=== PATIENT | female | born 1975 ===

== ENCOUNTER 2021-03-24 19:59 | Emergency (ER) | payer MEDICAID, SELFPAY ==
--- NOTE | ~2021-03-24 | XR_ITS ---
EXAMINATION: PORTABLE CHEST 1 VIEW CLINICAL INFORMATION: CHEST PAIN . COMPARISON: No recent pertinent prior studies are available for comparison. TECHNIQUE: Portable frontal view of the chest was obtained. FINDINGS: The lungs are well expanded. No focal infiltrate, effusion, edema, or pneumothorax. Cardiac and mediastinal silhouettes are within normal limits for technique. No acute bony abnormality seen. XR/XR chest 1V IMPRESSION: No evidence of acute disease.
[2021-03-24 20:07] VITALS: BP 167/90; PULSE 96; RESP 20; TEMP 36.2; O2SAT 100; BMI 28.5
--- NOTE | 2021-03-24 20:08 | PC.NURSE ---
ekg done at 2005
--- NOTE | 2021-03-24 20:11 | ECG_ITS ---
Test Reason : CP Blood Pressure : / mmHG Vent. Rate : 098 BPM Atrial Rate : 098 BPM P-R Int : 144 ms QRS Dur : 076 ms QT Int : 354 ms P-R-T Axes : 020 035 003 degrees QTc Int : 451 ms Normal sinus rhythm Normal ECG No previous ECGs available Referred By: Generic ED Physician Electronically Signed By:LADARIUS GOINS
[2021-03-24 21:06] VITALS: BP 154/95; PULSE 91; RESP 16; TEMP 37.4; O2SAT 100
[2021-03-24 21:19] LABS: MANUAL DIFF FLAG NO
[2021-03-24 21:27] LABS: Basophils Percent Auto 0.3 % (0-2); Eosinophils Absolute Auto 0.5 X10*3/uL (0.0-0.4); Eosinophils Percent Auto 5.2 % (0-4); Hematocrit 36.2 % (37-47); Hemoglobin 12.1 g/dl (12.0-16.0); Imm Gran Abs Auto 0.02 X10*3/uL (0.00-0.03); Imm Gran Pct Auto 0.2 % (0.0-0.4); Lymphocytes Absolute Auto 2.8 X10*3/uL (1.2-4.9); Lymphocytes Percent Auto 32.8 % (20-40); Mean Corpuscular HGB Conc 33.4 g/dl (31.0-35.0); Mean Corpuscular Hemoglobin 27.5 pg (27.0-33.0); Mean Corpuscular Volume 82.3 fL (80-98); Monocytes Absolute Auto 0.6 X10*3/uL (0.1-1.2); Monocytes Percent Auto 6.7 % (2-11); Neutrophils Absolute Auto 4.7 X10*3/uL (2.0-8.3); Neutrophils Percent Auto 54.8 % (45-73); Platelet Count 300 X10*3/uL (160-400); Red Cell Distribution Width 13.2 % (11.0-16.0); White Blood Count 8.6 X10*3/uL (4.8-10.8)
[2021-03-24 21:50] LABS: Anion Gap 15 (12-20); Blood Urea Nitrogen 9 mg/dL (9-16); Calcium 9.2 mg/dL (8.4-10.2); Carbon Dioxide 23 mmol/L (22-29); Chloride 104 mmol/L (96-108); Creatinine Clr Calc Pharmacy 107.6; Estimated Glomerular Filt Rate > 60; Glucose Random 196 mg/dL (60-115); Potassium 4.5 mmol/L (3.3-5.1); Sodium 137 mmol/L (135-145)
[2021-03-24 21:55] LABS: Troponin-I High Sensitivity < 3.5 ng/L (<3.5-17.0)
--- NOTE | 2021-03-24 22:53 | ED.CHESTPAIN ---
HPI - Chest Pain General Chief Complaint: Chest Pain Stated Complaint: chest pain Time Seen by Provider: 03/24/21 22:53 Source: patient History of Present Illness HPI narrative: This is a 45-year-old female with history of asthma who presents with complaints of 3 days of chest pain not associated with fever, chills, but states today she began having some nausea but does not think that she has acid reflux. The pain has not been associated with shortness of breath, recent travel, calf pain/swelling. Patient states that nothing makes the pain worse or better. Related Data Allergies Allergy/AdvReac Type Severity Reaction Status Date / Time No Known Allergies Allergy Verified 03/24/21 20:07 Review of Systems Review of Systems: Pertinent positives and negatives as stated in HPI 10 point review of systems is otherwise negative. PMFSH Past Medical History Source: nursing notes reviewed Medical History Asthma Diabetes Social History Social History Advance Directives: No Patient : No Physical Exam Vital Signs: Vital Signs: Last Vital Signs Temp 98.4 F 03/24/21 22:54 Pulse 83 03/24/21 22:54 Resp 18 03/24/21 22:54 BP 166/71 H 03/24/21 22:54 Pulse Ox 99 03/24/21 22:54 Body Mass Index 28.5 VITAL SIGNS: Reviewed. GENERAL: Well developed, well nourished, in no acute distress. HEAD: Normocephalic/atraumatic EYES: PERRLA, EOMI EARS: Ext canals without abnormality NOSE: Nares patent bilateral OROPHARYNX: no oral lesions noted, posterior pharynx clear NECK: Supple, no adenopathy LUNGS: Normal breath sounds. No adventitious sounds or accessory muscle use. SpO2<99> CARDIOVASCULAR: Regular rate and rhythm without noted murmurs, no JVD or lower extremity edema. ABDOMEN: Soft, non-tender, non-distended with bowel sounds. Course Course Course Narrative: This is a 45-year-old female with history and clinical presentation most consistent with asthma/costochondritis but no evidence to support acute asthma exacerbatio and low clinical suspicion for cardiopulmonary etiology. No evidence to support PE. Review of all investigations negative for acute findings, these results were communicated with the patient on she was discharged in stable condition with presumptive costochondritis as well as increase in asthma symptoms. MDM - Chest Pain Lab Data Result diagrams: 03/24/21 21:15 03/24/21 21:15 Labs: Lab Results 03/24/21 03/24/21 03/24/21 Range/Units 21:15 21:15 21:15 WBC 8.6 (4.8-10.8) X10*3/uL RBC 4.40 (4.20-5.50) X10*6/uL Hgb 12.1 (12.0-16.0) g/dl Hct 36.2 L (37-47) % MCV 82.3 (80-98) fL MCH 27.5 (27.0-33.0) pg MCHC 33.4 (31.0-35.0) g/dl RDW 13.2 (11.0-16.0) % Plt Count 300 (160-400) X10*3/uL MPV 10.0 (9.4-12.3) fL Immature Gran % (Auto) 0.2 (0.0-0.4) % Neut % (Auto) 54.8 (45-73) % Lymph % (Auto) 32.8 (20-40) % [place] % (Auto) 6.7 (2-11) % Eos % (Auto) 5.2 H (0-4) % Baso % (Auto) 0.3 (0-2) % Lymph # (Auto) 2.8 (1.2-4.9) X10*3/uL [place] # (Auto) 0.6 (0.1-1.2) X10*3/uL Eos # (Auto) 0.5 H (0.0-0.4) X10*3/uL Baso # (Auto) 0.0 (0.0-0.2) X10*3/uL Abs Immat Gran (auto) 0.02 (0.00-0.03) X10*3/uL Absolute Neuts (auto) 4.7 (2.0-8.3) X10*3/uL Absolute Nucleated RBC 0.000 (0.0-0.012) X10*3/uL Nucleated RBC % (auto) 0.0 (0.0-0.2) /100WBC Hold Blue Top Sodium 137 (135-145) mmol/L Potassium 4.5 (3.3-5.1) mmol/L Chloride 104 (96-108) mmol/L Carbon Dioxide 23 (22-29) mmol/L Anion Gap 15 (12-20) BUN 9 (9-16) mg/dL Creatinine 0.72 (0.5-1.4) mg/dL Estim Creat Clear Calc 107.6 Estimated GFR > 60 Random Glucose 196 H (60-115) mg/dL Calcium 9.2 (8.4-10.2) mg/dL Troponin I High Sens < 3.5 (<3.5-17.0) ng/L 03/24/21 Range/Units 21:27 WBC (4.8-10.8) X10*3/uL RBC (4.20-5.50) X10*6/uL Hgb (12.0-16.0) g/dl Hct (37-47) % MCV (80-98) fL MCH (27.0-33.0) pg MCHC (31.0-35.0) g/dl RDW (11.0-16.0) % Plt Count (160-400) X10*3/uL MPV (9.4-12.3) fL Immature Gran % (Auto) (0.0-0.4) % Neut % (Auto) (45-73) % Lymph % (Auto) (20-40) % [place] % (Auto) (2-11) % Eos % (Auto) (0-4) % Baso % (Auto) (0-2) % Lymph # (Auto) (1.2-4.9) X10*3/uL [place] # (Auto) (0.1-1.2) X10*3/uL Eos # (Auto) (0.0-0.4) X10*3/uL Baso # (Auto) (0.0-0.2) X10*3/uL Abs Immat Gran (auto) (0.00-0.03) X10*3/uL Absolute Neuts (auto) (2.0-8.3) X10*3/uL Absolute Nucleated RBC (0.0-0.012) X10*3/uL Nucleated RBC % (auto) (0.0-0.2) /100WBC Hold Blue Top SEE NOTE Sodium (135-145) mmol/L Potassium (3.3-5.1) mmol/L Chloride (96-108) mmol/L Carbon Dioxide (22-29) mmol/L Anion Gap (12-20) BUN (9-16) mg/dL Creatinine (0.5-1.4) mg/dL Estim Creat Clear Calc Estimated GFR Random Glucose (60-115) mg/dL Calcium (8.4-10.2) mg/dL Troponin I High Sens (<3.5-17.0) ng/L ECG Data ECG #1: Attestation: I personally reviewed and interpreted this ECG as follows: Prior ECG tracings: not available for review Interpretation: Normal sinus rhythm, HR-98, no evidence of acute ischemia, WV/QRS/QTC are within normal limits. Discharge Plan Discharge Clinical Impression: Atypical chest pain, Acute costochondritis Patient Disposition: Home, Self-Care Instructions: Costochondritis (ED), Chest Wall Pain (ED) Additional Instructions: 1. Tylenol 1000 mg, orally, every 6 hours as needed for pain control. Do not exceed 4000 mg within 24 hours. 2. Ibuprofen 400 mg, orally with milk or food, every 6 hours as needed for pain control. You may take this medication with the Tylenol for improved symptom relief. 3. Recommend increasing frequency of albuterol inhaler over the next 24-48 hours for additional symptom relief. 4. Recommend combining Claritin as well as Flonase for additional allergy control. 5. Please follow-up with the primary care provider in next 2-3 days for re-evaluation. Return to the ER for any acute worsening of symptoms. Referrals: Isak Alberto MD [Primary Care Provider] - 2 days (Re-evaluation for complaints of chest discomfort, cardiopulmonary workup here in the ER has been otherwise benign.) Interventions: ED Discharge Assessment Last Done: 03/25/21 00:04 Discharge Date/Time: 03/25/21 00:05
[2021-03-24 22:54] VITALS: BP 166/71; PULSE 83; RESP 18; TEMP 36.9; O2SAT 99
== END 2021-03-25 00:05 | disposition home or self-care (01) ==
PROVIDERS: Emergency Provider Student in an Organized Health Care Education/Training Program; PCP Internal Medicine
DX: R07.89 Other chest pain (principal); M94.0 Chondrocostal junction syndrome [Tietze]; J45.909 Unspecified asthma, uncomplicated; E11.9 Type 2 diabetes mellitus without complications
CPT/HCPCS: 36415; 71045; 80048; 84484; 85025; 93005; 99284

== ENCOUNTER 2023-04-07 01:06 | Emergency (ER) | payer OTHER, SELFPAY ==
--- NOTE | ~2023-04-07 | CT_ITS ---
EXAMINATION: CT FACIAL BONES WITH CONTRAST CLINICAL INFORMATION: Rule out abscess right mandible COMPARISON: None available. TECHNIQUE: 85 mL Omnipaque 350 intravenous contrast was utilized. Multidetector helical imaging was performed through the facial bones. Coronal and sagittal reformatted images were created. This CT examination was performed using dose optimization techniques as appropriate, variously including the following: *Automated exposure control *Adjustment of mA and/or kV according to patient size (this includes techniques or standardized protocols for targeted exams where dose is matched to indication/reason for exam; i.e. extremities or head) *Use of iterative reconstruction technique DLP: 329 mGy-cm FINDINGS: There is subcutaneous edema adjacent to the right aspect of the mandibular body. No discrete fluid collection is seen in this region, though there is a tiny focus of gas adjacent to the right mandibular second premolar. Mild periapical lucency at the first right mandibular molar. Mildly prominent right submandibular and upper cervical lymph nodes may be reactive. No acute maxillofacial fractures are seen. Slight mucosal thickening of the right sphenoid sinus. Small mucous retention cysts in the maxillary sinuses. Remaining paranasal sinuses are well aerated. There is mucosal thickening of the infundibula, right greater than left. Leftward spurring of the nasal septum. Mild periapical lucency adjacent to the first right mandibular molar. The mandibular condyles are well-seated in the condylar fossa. The orbits demonstrate a normal appearance bilaterally. The globes are intact, and there are no suspicious findings to suggest retrobulbar hemorrhage. Visualized portions of the brain parenchyma are unremarkable. CT/CT facial bones w IV con IMPRESSION: Subcutaneous edema adjacent to the right aspect of the mandibular body. No discrete fluid collection is seen in this region, though there is a tiny focus of gas adjacent to the right mandibular second premolar which could be indicative of tiny abscess. Mild periapical lucency at the first right mandibular molar. Mildly prominent right submandibular and upper cervical lymph nodes may be reactive.
[2023-04-07 01:09] VITALS: BP 129/86; PULSE 94; RESP 16; TEMP 35.9; O2SAT 99; BMI 27.6
--- NOTE | 2023-04-07 01:36 | ED.DENTAL ---
HPI - Dental/Oral General Chief complaint: Dental/Oral Stated complaint: Facial swelling/pain Time Seen by Provider: 04/07/23 01:26 Source: patient Mode of arrival: ambulatory Limitations: no limitations History of Present Illness HPI Narrative: Patient comes to the emergency room complaining of right mandibular pain. Patient states that she went to see her dentist, per patient x-rays were done, she was told by her dentist that she has a significant dental infection/abscess. Patient was started on clindamycin and Tylenol 3 for pain control. Patient states that she has been taking the antibiotics for 3 days, however the swelling and the pain keeps getting worse. Patient denies fever chills. Related Data Previous Rx's Medication Instructions Recorded cefuroxime axetil 500 mg tablet 500 mg PO BID #20 tabs 04/07/23 ketorolac 10 mg tablet 10 mg PO TID PRN pain 5 days #12 04/07/23 tabs metronidazole 500 mg tablet 500 mg PO TID 10 days #30 tabs 04/07/23 Allergies Allergy/AdvReac Type Severity Reaction Status Date / Time No Known Allergies Allergy Verified 04/07/23 01:13 Review of Systems Review of Systems: Constitutional : No Weight loss, No Fever, No Chills, No Night Sweats, No Fatigue, No Malaise ENT/Mouth : No Hearing loss, No Ear Pain, No Nasal Congestion, No Sinus Pain, No Hoarseness, No sore throat, No Rhinorrhea, No Swallowing Difficulty, complaining of intl pain and right mandibular swelling Eyes: No Eye Pain, No Swelling, No Redness, No Foreign Body, No Discharge, No Vision Changes Cardiovascular : No Chest Pain, No SOB, No Dyspnea on Exertion, No Orthopnea, No Edema, No Palpitations Respiratory : No Cough, No Sputum, No Wheezing, No Smoke Exposure, No Dyspnea Gastrointestinal : No Nausea, No Vomiting, No Diarrhea, No Constipation, No abdominal Pain, No Hematochezia, No Melena Genitourinary : no irregular bleeding, No Dysuria, No Urinary Frequency, No Hematuria, No Urinary Incontinence, No Urgency, No Flank Pain, No Urinary Flow Changes, No Hesitancy Musculoskeletal : No joint pain, No Myalgias, No Joint Swelling Skin : No Skin Lesions, No rash Neuro : No Weakness, No Numbness, No Paresthesias, No Loss of Consciousness, No Dizziness, No Headache Psych : No Anxiety/Panic, No Depression, No SI/HI/AH/VH, No Social Issues, Heme/Lymph: No Bruising, No Bleeding,No Lymphadenopathy Endocrine : No Polyuria, No Polydipsia, No Temperature Intolerance [facility] Past Medical History Medical History Asthma Diabetes Social History Social History Smoked in Last 30 Days: No Use of substances other than those prescribed or required for medical reasons: No Advance Directives: No Advance Directives Information Provided: No Patient : No Physical Exam Vital Signs: Vital Signs: Last Vital Signs Temp 96.7 F L 04/07/23 01:09 Pulse 94 04/07/23 01:09 Resp 16 04/07/23 01:09 BP 129/86 04/07/23 01:09 Pulse Ox 99 04/07/23 01:09 O2 Del Method Room Air 04/07/23 01:09 BMI result Body Mass Index 27.6 Const: Other: Appearance: Alert. Oriented X3. No acute distress. Eyes: Pupils equal, round and reactive to light. ENT: Pharynx normal. There is significant swelling on the right mandibular side, patient is able to open the mouth but with pain. There is no obvious abscess that can be easily drained. No pain under the tongue or floor of the mouth/chin area. Both ears within normal limits, ear canals clear Neck: Normal inspection. Neck supple. No lymph nodes noted. No crepitus CVS: Normal heart rate and rhythm. Pulses normal. Normal S1 and S2 Respiratory: No respiratory distress. Breath sounds normal. No Wheezing. No rales Abdomen: Soft and nontender. No rigidity. No distention. Skin: Skin warm and dry. Normal skin color. Normal skin turgor. Extremities: No lower extremity edema. No Lacerations. No Rash Neuro: Oriented X 3. No motor deficit. No sensory deficit. Moving all extremities. No slurred speech. CN 2 through 12 grossly intact Psych: calm, cooperative, normal affect Course Course Course Narrative: -patient is not responding well to clindamycin. Patient is being given ceftriaxone and metronidazole IV -all of patient's labs are pending -CT scan of facial bones with contrast pending Medications Administered Discontinued Medications Generic Name Dose Route Start Last Admin Trade Name Saul PRN Reason Stop Dose Admin Ceftriaxone Sodium 2 gm/ 50 mls @ 100 mls/hr 04/07/23 01:38 04/07/23 02:49 Sodium Chloride IV 04/07/23 02:07 Infused ONCE ONE Infusion Metronidazole 500 mg in 100 mls @ 100 mls/hr 04/07/23 01:38 04/07/23 02:49 Flagyl IV 04/07/23 02:37 Infused ONCE ONE Infusion Iohexol 85 ml 04/07/23 03:10 04/07/23 03:11 Iohexol 350 Mg/Ml 100 Ml Infus..Btl IV 04/07/23 03:11 85 ml ONCE ONE Administration Ketorolac Tromethamine 30 mg 04/07/23 01:30 04/07/23 01:55 Ketorolac Tromethamine 30 Mg/Ml Vial IVPUSH 04/07/23 01:31 30 mg ONCE ONE Administration Medical Decision Making Medical Decision Making [facility] Narrative: -patient has significant swelling of the jaw, patient did not do well with p.o. antibiotics, admission being considered. -my interpretation of hematology: White blood cell count is elevated, likely secondary to the oral infection -my interpretation of CT scan of the facial bones with contrast, I do not see an obvious abscess -patient responded well to Toradol, given 1 dose of IV ceftriaxone and metronidazole. It is possible that patient may have persistence to clindamycin, I will go ahead and switch antibiotics, patient instructed to follow-up with her primary care physician and dentist Differential Diagnosis Differential Diagnoses: The differential diagnosis associated with the presentation includes (Cellulitis, dental abscess, Rangel's angina) Admission/Observation Consideration of admission/observation: Escalation of care including admission/observation considered Lab Data [facility] Lab Attestation statement: I reviewed the patient's lab results. 04/07/23 01:51 04/07/23 01:51 Labs: Lab Results 04/07/23 04/07/23 04/07/23 Range/Units 01:51 01:51 01:51 WBC 11.4 H (4.8-10.8) X10*3/uL RBC 4.38 (4.20-5.50) X10*6/uL Hgb 12.0 (12.0-16.0) g/dl Hct 35.3 L (37.0-47.0) % MCV 80.6 (80.0-98.0) fL MCH 27.4 (27.0-33.0) pg MCHC 34.0 (31.0-35.0) g/dl RDW 13.4 (11.0-16.0) % Plt Count 260 (160-400) X10*3/uL MPV 10.0 (9.4-12.3) fL Immature Gran % (Auto) 0.3 (0.0-0.4) % Neut % (Auto) 71.8 (45-73) % Lymph % (Auto) 17.2 L (20-40) % [place] % (Auto) 7.7 (2-11) % Eos % (Auto) 2.7 (0-4) % Baso % (Auto) 0.3 (0-2) % Lymph # (Auto) 2.0 (1.2-4.9) X10*3/uL [place] # (Auto) 0.9 (0.1-1.2) X10*3/uL Eos # (Auto) 0.3 (0.0-0.4) X10*3/uL Baso # (Auto) 0.0 (0.0-0.2) X10*3/uL Abs Immat Gran (auto) 0.04 H (0.00-0.03) X10*3/uL Absolute Neuts (auto) 8.2 (2.0-8.3) x10*3/uL Absolute Nucleated RBC 0.000 (0.0-0.012) X10*3/uL Nucleated RBC % (auto) 0.0 (0.0-0.2) /100WBC Sodium 136 (135-145) mmol/L Potassium 4.1 (3.3-5.1) mmol/L Chloride 103 (96-108) mmol/L Carbon Dioxide 24 (22-29) mmol/L Anion Gap 13 (12-20) BUN 11 (9-16) mg/dL Creatinine 0.61 (0.5-1.4) mg/dL Estim Creat Clear Calc 122.4 Estimated GFR > 60 Random Glucose 164 H (60-115) mg/dL Lactic Acid (0.5-2.0) mmol/L Calcium 9.7 (8.4-10.2) mg/dL Beta HCG, Quant < 2 mIU/mL 04/07/23 Range/Units 01:51 WBC (4.8-10.8) X10*3/uL RBC (4.20-5.50) X10*6/uL Hgb (12.0-16.0) g/dl Hct (37.0-47.0) % MCV (80.0-98.0) fL MCH (27.0-33.0) pg MCHC (31.0-35.0) g/dl RDW (11.0-16.0) % Plt Count (160-400) X10*3/uL MPV (9.4-12.3) fL Immature Gran % (Auto) (0.0-0.4) % Neut % (Auto) (45-73) % Lymph % (Auto) (20-40) % [place] % (Auto) (2-11) % Eos % (Auto) (0-4) % Baso % (Auto) (0-2) % Lymph # (Auto) (1.2-4.9) X10*3/uL [place] # (Auto) (0.1-1.2) X10*3/uL Eos # (Auto) (0.0-0.4) X10*3/uL Baso # (Auto) (0.0-0.2) X10*3/uL Abs Immat Gran (auto) (0.00-0.03) X10*3/uL Absolute Neuts (auto) (2.0-8.3) x10*3/uL Absolute Nucleated RBC (0.0-0.012) X10*3/uL Nucleated RBC % (auto) (0.0-0.2) /100WBC Sodium (135-145) mmol/L Potassium (3.3-5.1) mmol/L Chloride (96-108) mmol/L Carbon Dioxide (22-29) mmol/L Anion Gap (12-20) BUN (9-16) mg/dL Creatinine (0.5-1.4) mg/dL Estim Creat Clear Calc Estimated GFR Random Glucose (60-115) mg/dL Lactic Acid 0.8 (0.5-2.0) mmol/L Calcium (8.4-10.2) mg/dL Beta HCG, Quant mIU/mL Radiology Impression Discussion of test interpretation with radiology: I have reviewed the radiologist's reading. (Possible tiny abscess) Radiologist Impression: FINDINGS: There is subcutaneous edema adjacent to the right aspect of the mandibular body. No discrete fluid collection is seen in this region, though there is a tiny focus of gas adjacent to the right mandibular second premolar. Mild periapical lucency at the first right mandibular molar. Mildly prominent right submandibular and upper cervical lymph nodes may be reactive. No acute maxillofacial fractures are seen. Slight mucosal thickening of the right sphenoid sinus. Small mucous retention cysts in the maxillary sinuses. Remaining paranasal sinuses are well aerated. There is mucosal thickening of the infundibula, right greater than left. Leftward spurring of the nasal septum. Mild periapical lucency adjacent to the first right mandibular molar. The mandibular condyles are well-seated in the condylar fossa. The orbits demonstrate a normal appearance bilaterally. The globes are intact, and there are no suspicious findings to suggest retrobulbar hemorrhage. Visualized portions of the brain parenchyma are unremarkable. CT/CT facial bones w IV con IMPRESSION: Subcutaneous edema adjacent to the right aspect of the mandibular body. No discrete fluid collection is seen in this region, though there is a tiny focus of gas adjacent to the right mandibular second premolar which could be indicative of tiny abscess. Mild periapical lucency at the first right mandibular molar. Mildly prominent right submandibular and upper cervical lymph nodes may be reactive. Discharge Plan Discharge Clinical Impression: Toothache Patient Disposition: Home, Self-Care Instructions: Dental Abscess (ED) Additional Instructions: Please follow-up with your primary care physician tomorrow. If you have any worsening or new symptoms, please return to the emergency room or call 911 Prescriptions: New ketorolac 10 mg tablet 10 mg PO TID PRN (Reason: pain) 5 Days Qty: 12 0RF Rx Instructions: Do not use this medication with ibuprofen, Aleve, naproxen. Only Tylenol if needed cefuroxime axetil 500 mg tablet 500 mg PO BID Qty: 20 0RF metronidazole 500 mg tablet 500 mg PO TID 10 Days Qty: 30 0RF Rx Instructions: Do not drink alcohol while you are taking this medication.
[2023-04-07] MEDS: Ketorolac Tromethamine 30 MG/ML VIAL IVPUSH (01:55)
[2023-04-07 02:01] LABS: MANUAL DIFF FLAG NO
[2023-04-07] MEDS: cefTRIAXone sodium 2 GM in 0.9 % Sodium Chloride 50 ML IV (02:01)
[2023-04-07] MEDS: metroNIDAZOLE/NS 500 MG/100 ML PIGGYBACK 100 MG IV (02:01)
[2023-04-07 02:03] LABS: Basophils Percent Auto 0.3 % (0-2); Eosinophils Absolute Auto 0.3 X10*3/uL (0.0-0.4); Eosinophils Percent Auto 2.7 % (0-4); Hematocrit 35.3 % (37.0-47.0); Imm Gran Abs Auto 0.04 X10*3/uL (0.00-0.03); Imm Gran Pct Auto 0.3 % (0.0-0.4); Lymphocytes Percent Auto 17.2 % (20-40); Mean Corpuscular Hemoglobin 27.4 pg (27.0-33.0); Mean Corpuscular Volume 80.6 fL (80.0-98.0); Monocytes Absolute Auto 0.9 X10*3/uL (0.1-1.2); Monocytes Percent Auto 7.7 % (2-11); Neutrophils Absolute Auto 8.2 x10*3/uL (2.0-8.3); Neutrophils Percent Auto 71.8 % (45-73); Platelet Count 260 X10*3/uL (160-400); Red Blood Count 4.38 X10*6/uL (4.20-5.50); Red Cell Distribution Width 13.4 % (11.0-16.0); White Blood Count 11.4 X10*3/uL (4.8-10.8)
[2023-04-07 02:14] LABS: Lactic Acid 0.8 mmol/L (0.5-2.0)
[2023-04-07 02:17] LABS: Anion Gap 13 (12-20); Blood Urea Nitrogen 11 mg/dL (9-16); Calcium 9.7 mg/dL (8.4-10.2); Carbon Dioxide 24 mmol/L (22-29); Chloride 103 mmol/L (96-108); Creatinine Clr Calc Pharmacy 122.4; Estimated Glomerular Filt Rate > 60; Glucose Random 164 mg/dL (60-115); Potassium 4.1 mmol/L (3.3-5.1); Sodium 136 mmol/L (135-145)
--- OUTSIDE RECORDS SUMMARY | 2023-04-07 02:23 | XMS_ITS | Continuity of Care Document ---
Author Name Unknown Organization [facility] Address Unknown Care Team Providers Care Grounds Maintenance Worker Name Role Phone Not on Staff, PCP Primary Care Physician Unavail able [place]counter [facility] [place] Date(s): 10/26/21 - 11/25/21 [facility] Attending Physician: Ana Rosa Mirza Admitting Physician: Ana Rosa Mirza Referring Physician: Ana Rosa Mirza Allergies, Adverse Reactions, Alerts No Known Allergies Medications Robitussin-AC 10 mg-100 mg/5 ml oral syrup 10, mL, By Mouth, Every 4 hours, 120, mL, 0, 0, 11/11/07 12:08:48, Print AMY Number, ADS OPPTHS, 51, Constant Indicator Start Date: 11/11/07 Status: Ordered
--- OUTSIDE RECORDS SUMMARY | 2023-04-07 02:23 | XMS_ITS | Continuity of Care Document ---
Author Name Unknown Organization [facility] Address Unknown Care Team Providers Care College Advisor Name Role Phone Not on Staff, PCP Primary Care Physician Unavail able [place] [facility] [place]26/21 [facility] Allergies, Adverse Reactions, Alerts Substance Reaction Severity Status NKA Active Medications Robitussin-AC 10 mg-100 mg/5 ml oral syrup 10, mL, By Mouth, Every 4 hours, 120, mL, 0, 0, 11/11/07 12:08:48, Print AMY Number, ADS OPPTHS, 51, Constant Indicator Start Date: 11/11/07 Status: Ordered
[2023-04-07 02:27] LABS: HCG Quantitative < 2 mIU/mL
[2023-04-07] MEDS: iohexoL 350 MG/ML 100 ML INFUS..BTL 85 ML IV (03:11)
[2023-04-07 04:19] VITALS: BP 139/70; PULSE 82; RESP 12; O2SAT 98
== END 2023-04-07 04:24 | disposition home or self-care (01) ==
PROVIDERS: Emergency Provider Emergency Medicine; PCP Physician Assistant
DX: K08.89 Other specified disorders of teeth and supporting structures (principal); K04.7 Periapical abscess without sinus; E11.9 Type 2 diabetes mellitus without complications
CPT/HCPCS: 36415; 70487; 80048; 83605; 84702; 85025; 87040; 96365; 96375; 99284; 99285; J0696; J1885; Q9967

== ENCOUNTER → 2024-06-29 10:30 | Outpatient (BNV) | payer OTHER, SELFPAY | PROVIDERS: PCP Physician Assistant; Visit Provider Internal Medicine | DX: Z12.31 Encounter for screening mammogram for malignant neoplasm of breast (principal) | CPT/HCPCS: 77063; 77067 ==

== ENCOUNTER 2024-06-29 10:35 | Outpatient (REF) | payer OTHER, SELFPAY ==
--- NOTE | ~2024-06-29 | MM_ITS ---
EXAMINATION: MM SCREENING DIGITAL BREAST TOMOSYNTHESIS, BILATERAL CLINICAL INFORMATION: Screening. Asymptomatic. COMPARISON: Mammography: Comparison is made with available priors TECHNIQUE: Digital breast mammography with tomosynthesis is performed in both the craniocaudal and mediolateral oblique views along with computer-aided detection (CAD). FINDINGS: The breasts are heterogeneously dense, which may obscure small masses (ACR BI-RADS breast composition Category c). There are no significant masses, abnormal calcifications, or other abnormalities. MM/MM tomosynthesis screening BI IMPRESSION: No mammographic evidence of malignancy. ASSESSMENT: BI-RADS BI-RADS 1 - Negative RECOMMENDATION: Routine annual mammography screening. 1 year F/U This examination should not preclude the clinical evaluation of a suspicious palpable abnormality. This patient's information was entered into a reminder system with a target due date for their next mammogram. Electronically signed by: Priscila Hernadez DO 07/11/2024 01:21 PM EDT
== END 2024-06-29 10:36 | disposition home or self-care (01) ==
LOC: HO.MAMMO 10:35
PROVIDERS: PCP Physician Assistant; Visit Provider Physician Assistant
DX: Z12.31 Encounter for screening mammogram for malignant neoplasm of breast (principal)
CPT/HCPCS: 77063; 77067

== ENCOUNTER 2025-06-19 16:24 | Outpatient (REF) | payer OTHER, SELFPAY ==
--- NOTE | ~2025-06-19 | MR_ITS ---
EXAMINATION: MR BRAIN WITHOUT CONTRAST CLINICAL INFORMATION: Worsening migraines with associated aura. Vision changes dizziness, fatigue COMPARISON: CT of the facial bones April 07, 2023 TECHNIQUE: MRI of the brain was obtained using routine sequences without contrast. FINDINGS: Brain parenchyma: No shift of midline structures. No evidence of acute infarct, mass lesion or parenchymal hemorrhage. Ventricles/extra-axial spaces: There is an approximately 0.8 cm apparent lesion within the frontal horn of the right lateral ventricle, only seen in one sequence (8:11). No hydrocephalus. No extra-axial fluid collection. Extra-axial structures: Unremarkable bilateral orbits. Moderate mucosal thickening of the paranasal sinuses. Bilateral mastoid air cells are clear. Arterial flow voids in the skull base are preserved. MR/MR head/brain wo con IMPRESSION: 1. Unremarkable appearance of the brain parenchyma. 2. Apparent intraventricular lesion within the right lateral ventricle, only seen in one sequence. Recommend brain MRI with intravenous contrast for reevaluation (please repeat axial T2 FLAIR sequence prior to administration of intravenous contrast). Electronically signed by: Agustina Escalante MD 06/19/2025 05:32 PM EDT
--- OUTSIDE RECORDS SUMMARY | 2025-06-19 18:56 | XMS_ITS | Encounter Summary ---
Author Organization [facility] Address [address] [place] [address] Phone Care Team Providers Care Chef Instructor Name Role Phone Isak Alberto MD Primary Care Provider [phone] Isak Alberto MD Unavailable [phone] Tracy Davies RN Unavailable Felecia Mak Primary Care Provider [phone] Tracy Davies RN Unavailable Encounter Details Date Type Department Care Team (Late st Contact Info) Description 08/28/2019 Procedure Pass [facility] Endoscopy Admitting Dept Virtual Department [address] [place] [address] Social History Tobacco Use Types Packs/Day Years Used Date Smoking Tobacco: Never Smokeless Tobacco: Never Alcohol Use Standard Drinks/Week Comments No 0 (1 standard drink = 0.6 oz pur e alcohol) Comments Unknown Sex and Gender Information Value Date Recorded Sex Assigned at Female 07/19/2018 3:20 PM EDT Legal Sex Female 9:26 PM EDT Gender Identity Female 07/19/2018 3:20 PM EDT Sexual Orientation Straight 08/10/2019 11 :34 PM EDT documented as of this encounter Plan of Treatment Not on file documented as of this encounter Visit Diagnoses Not on filedocumented in this encounter Additional Health Concerns Infection Onset Date Last Indicated Resolved Time CoV-Risk Comment:Referred for COVID-19 testing 01/29/2020 01/29/2020 02/12/2020 1:24 AM E DT CoV-Exposed Comment:Recent close contact 09/28/2020 09/28/2020 10/12/2020 1:25 AM EST documented as of this encounter Care Teams Chef Instructor Relationship Specialty Start Date End Date Isak Alberto MD [email or web address] PCP - General Internal Medicine 07/19/18 05/10/23 Felecia Mak PA [address] [place] [address] [email or web address] PCP - General Physician Hog Worker 05/11/23 Isak Alberto MD [address] [place] [address] [email or web address] Insurance Assigned Provider 09/14/19 06/17/23 Tracy Davies RN [address] [place] [address] [email or web address] [employer] Repair Table Operator 11/17/20 12/29/20 Tracy Davies RN [address] [place] [phone] [email or web address] i[employer] Repair Table OperatorNanny Caregiver 06/21/23 07/19/23 documented as of this encounter Additional Source Comments The information contained in this document represents components of the legal health record. It is not the complete legal health record.[facility]
--- OUTSIDE RECORDS SUMMARY | 2025-06-19 18:56 | XMS_ITS | Clinical Summary ---
Author Organization [facility] Address [address] [place] [address] Phone Care Team Providers Care Cold Food Packer Name Role Phone Felecia Mak Primary Care Provider [phone] Allergies No known active allergies Medications metFORMIN (GLUCOPHAGE) 1000 MG tablet Take 1,000 mg by mouth. Active butalbital-aceta minophen-caffein e (FIORICET, ESGIC) 50-325-40 mg per tabletIndication s:migraine Take 1 tablet by mouth as needed. Indications: a migraine headache Active albuterol (VENTOLIN HFA) 90 mcg/actuation inhaler Inhale 2 puffs into the lungs every 6 (six) hours as needed for wheezing. 1 Inhaler 8 Active Additional Information Patient not taking.Reported on 07/11/2023 GLIPIZIDE ORAL Take by mouth. Active LISINOPRIL ORAL Take by mouth. Active guaiFENesin-code ine (ROBITUSSIN AC) 100-10 mg/5 mL liquid Take 10 mL (20 mg of codeine total) by mouth 3 (three) times a day as needed for cough. 120 mL 9 Active Additional Information Patient not taking.Reported on 07/11/2023 albuterol 2.5 mg /3 mL (0.083 %) nebulizer solution Take 3 mL (2.5 mg total) by nebulization every 4 (four) hours as needed for shortness of breath/dyspnea. 20 vial 9 Active Additional Information Patient not taking.Reported on 07/11/2023 omega 6-wmr-not-fish oil 1,000 mg (120 mg-180 mg) Cap Take 1 capsule by mouth daily. Active Medication-Free TextIndications: cinnamon Indications: cinnamon Active biotin 1 mg tablet Take 1,000 mcg by mouth 3 (three) times a day. 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 Not on dave e 02/03/2023 Are you concerned about learning? Not on file 02/03/2023 No 02/03/2023 No 02/03/2023 Digital Access Answer Date Recorded No 03/03/2023 No 03/03/2023 Reliable internet access at home? Not on file 03/03/2023 Device with a working camera? Not on file Comments Unknown Sex and Gender Information Value Date Recorded Sex Assigned at Female 07/19/2018 3:20 PM EDT Legal Sex Female 9:26 PM EDT Gender Identity Female 07/19/2018 3:20 PM EDT Sexual Orientation Straight 08/10/2019 11 :34 PM EDT Last Filed Vital Signs Vital Sign Reading Time Taken Comments Blood Pressure 126/73 07/11/2023 2:55 PM EDT Pulse 87 07/11/2023 2:55 PM EDT Temperature 36 C (96.8 F) 08/28/2019 10:51 AM EST Respiratory Rate 20 08/28/2019 11:0 5 AM EST Oxygen Saturation 100% 08/28/2019 11: 05 AM EST Inhaled Oxygen Concentration - - Weight 78.8 kg (173 lb 12.8 oz) 07/11/2023 2:55 PM EDT Height 165.7 cm (5' 5.25 ) 07/11/2023 2:55 PM ED T Body Mass Index 28.7 07/11/2023 2:55 PM EDT Plan of Treatment Health Maintenance Due Date Last Done Comments DEPRESSION SCREENING 1989 HEPATITIS C SCREENING 1995 HIV ONE-TIME SCREENING (18-65 YEARS) 1995 MAMMOGRAM 2017 CREATININE LEVEL 08/10/2020 08/10/2019, 07/19/2018 POTASSIUM LEVEL 08/10/2020 08/10/2019, 07/19/2018 COLOGUARD 2022 COLONOSCOPY 2022 COLORECTAL CANCER SCREENING 2022 FIT TEST 2022 FOBT 2022 SIGMOIDOSCOPY 2022 VIRTUAL COLONOSCOPY 2022 PAP SMEAR 12/11/2023 12/10/2020 INFLUENZA VACCINE (#1) 2025 7, 09/22/2016, 09/27/2013, Additional history exists COVID-19 VACCINE (2024- season) 2025 05/09/2021, 05/03/2021, 04/10/2021, Additional history exists Adult Td,Tdap Booster 04/26/2026 04/26/2016, 008 SCREENING FOR DIABETES 08/01/2026 08/01/2023 LIPID PANEL 06/01/2029 06/01/2024, 05/10, 10/11/2023, Additional history exists PNEUMOCOCCAL VACCINES (0-49 years) Aged Out 07/05/2011 No longer eligible based on patient's age to complete this topic SMOKING STATUS SCREENING (Once After 26 Yrs) Completed 08/28/2019 MENINGOCOCCAL VACCINES (ACWY) Aged Out 04/07/2021 No longer eligible based on patient's age to complete this topic HEPATITIS A VACCINES Aged Out No long er eligible based on patient's age to complete this topic HIB VACCINES Aged Out No longer eligi ble based on patient's age to complete this topic MENINGOCOCCAL VACCINES (B) Aged Out N o longer eligible based on patient's age to complete this topic Medical Devices Not on file Procedures Procedure Name Priority Date/Time Associated Diagnosis Comments PAP TEST Routine 12/10/2020 12:00 AM EST BASIC METABOLIC PANEL STAT 08/10/2019 11:52 PM EDT from Last 3 Months or Most Recently Relevant to Health Maintenance Results * Pap Smear (12/10/2020 12:00 AM EST) 12/10/2020 12/14/2020 8:2 2 AM EST Narrative SEE NARRATIVE - 12/18/2020 9:35 AM EST [address] [address] Tape Sewing Machine Operator: Shreya Lang MD BIKE ASSEMBLER Cytology Report FINAL DIAGNOSIS A. PAP SMEAR (SUREPATH) CE: SPECIMEN ADEQUACY: Satisfactory for evaluation; transformation zone present. INTERPRETATION: NEGATIVE FOR INTRAEPITHELIAL LESION OR MALIGNANCY. Electronically Signed Out By: MARIYA Sofia(ASCP) The Pap test is a screening test primarily for squamous cancers and precursors and has associated false-negative and false-positive results. New technologies such as liquid-based preparations may decrease but will not eliminate all false-negative results. Regular sampling and follow-up of unexplained clinical signs and symptoms are recommended to minimize false negative results. PROCEDURES/ADDENDA HPV Testing (Requested) Ordered Date: 12/14/2020 A. PAP SMEAR (SUREPATH) CE: Human Papilloma Virus Test Negative for high-risk human papillomavirus types 16, 18, 45 and the Other high risk probe set (Includes 31, 33, 35, 39, 51, 52, 56, 58, 59, 66, 68) by Telly Onclarity HR-HPV analysis. Clinical correlation is advised. This HPV test was performed at [facility], [address] [place] [address]. This test has been FDA approved for SurePath cervical cytology specimens. The accuracy and precision of this test for all other specimen sources has been verified in the Cytopathology Laboratory of the [facility] and has not been cleared or approved by the U.S. Food and Drug Administration. Clinical correlation is advised. CLINICAL HISTORY Date of Last Menstrual Period: 11-30-2020 Other Clinical Conditions: Screening Pap SPECIMEN SOURCE A: PAP SMEAR (SUREPATH) CE Patient Name: DIANN AWAD : 1975 (Age: 45) Sex: F Institution: [facility] Location: [facility] Date of Collection: 12/10/2020 Date of Reported: 12/16/2020 12:10 Results to: Aishwarya Del Real NP us Aishwarya Del Real NP CYTOLOGY ORDERABLES Edited Res ult - Final SEE NARRATIVE * (ABNORMAL) Basic metabolic panel (08/10/2019 11:52 PM EDT) SODIUM 136 133 - 146 mmol/L [facility] CHLORIDE 97 96 - 108 mmol/L [facility] POTASSIUM 3.7 3.3 - 5.1 mmol/L [facility] CO2 25 21 - 35 mmol/L [facility] BUN 10 6 - 19 mg/dL [facility] CREATININE 0.70 0.5 - 1.5 mg/dL [facility] GLUCOSE 237(H) 70 - 99 mg/dL [facility] CALCIUM 8.5 8.4 - 10.3 mg/dL [facility] EGFR 107 >59 mL/min/1.7 3m2 [facility] Comment:If patient is black, multiply result by 1.159. Estimated glomerular filtration rate calculated using the CKD-EPI equation. ANION GAP 18 10 - 20 mmol/L [facility] Blood 08/10/2019 11:5 2 PM EDT 08/10/2019 11:56 PM EDT us Frank Jose MD LAB BLOOD ORDERABLES Fin al Result [facility] [address] [place] [address] from Last 3 Months or Most Recently Relevant to Health Maintenance Insurance [facility] Care Teams Cold Food Packer Relationship Specialty Start Date End Date Felecia Mak PA [address] [place] [address] [email or web address] PCP - General Physician Stripper Machine Operator 05/11/23 Additional Source Comments The information contained in this document represents components of the legal health record. It is not the complete legal health record.[facility]
--- OUTSIDE RECORDS SUMMARY | 2025-06-19 18:56 | XMS_ITS ---
Author Name [facility] Organization Unknown Encounters Encounter Type Encounter Reason Primary Diagnosis Location Date Ambulatory [facility] 05/15/2025 Care Team Organization Name Specialty Phone Email Start Date End [facility] 05/18
--- OUTSIDE RECORDS SUMMARY | 2025-06-19 18:56 | XMS_ITS | Encounter Summary ---
Author Organization [facility] Address [address] [place] [address] Phone Care Team Providers Care Community Service Technician Name Role Phone Isak Alberto MD Primary Care Provider [phone] Isak Alberto MD Unavailable [phone] Tracy Davies RN Unavailable Felecia Mak Primary Care Provider [phone] Tracy Davies RN Unavailable Encounter Details Date Type Department Care Team (Late st Contact Info) Description 09/28/2020 Transcribe Orders Virtual Department [address] [place], [place] [phone] Lauren Hernandez PA [address] [place] [address] Social History Tobacco Use Types Packs/Day Years [...] Infection Onset Date Last Indicated Resolved Time CoV-Exposed Comment:Recent close contact 09/28/2020 09/28/2020 10/12/2020 1:25 AM EST documented as of this encounter Care Teams Community Service Technician Relationship Specialty Start Date End Date Isak Alberto MD [email or web address] PCP - General Internal Medicine 07/19/18 05/10/23 Felecia Mak PA [address] [place] [address] [email or web address] PCP - General Physician Senior Sharepoint Architect 05/11/23 Isak Alberto MD [address] [place] [address] [email or web address] Insurance Assigned Provider 09/14/19 06/17/23 Tracy Davies RN [address] [place] [address] [email or web address] [employer] Sales Operations 11/17/20 12/29/20 Tracy Davies RN [address] [place] [address] [email or web address] [employer] Sales OperationsSchool Curriculum Developer 06/21/23 07/19/23 documented as of this encounter Additional Source Comments The information contained in this document represents components of the legal health record. It is not the complete legal health record.[facility]
--- OUTSIDE RECORDS SUMMARY | 2025-06-19 18:56 | XMS_ITS | Encounter Summary ---
Author Organization [facility] Address [address] [place] [address] Phone Care Team Providers Care Loan Manager Name Role Phone Isak Alberto MD Primary Care Provider Isak Alberto MD Unavailable [phone] Tracy Davies RN Unavailable Felecia Mak Primary Care Provider [phone] Tracy Davies RN Unavailable Encounter Details Date Type Department Care Team (Late st Contact Info) Description 07/17/2019 Transcribe [facility] [address] [facility] [address] [place], [place] [phone] Venice Reid PA [address] [place] [phone] [email or web address] Social History Tobacco Use Types Packs/Day Years [...] documented as of this encounter Care Teams Loan Manager Relationship Specialty Start Date End Date Isak Alberto MD [email or web address] PCP - General Internal Medicine 07/19/18 05/10/23 Felecia Mak PA [address] [place] [address] [email or web address] PCP - General Physician Ux Design Manager 05/11/23 Isak Alberto MD [address] [place] [address] [email or web address] Insurance Assigned Provider 09/14/19 06/17/23 Tracy Davies RN [address] [place] [address] [email or web address] [employer] Yeast Maker 11/17/20 12/29/20 Tracy Davies RN [address] [place] [address] [email or web address] iC[employer] Yeast MakerSchool Lunch Monitor 06/21/23 07/19/23 documented as of this encounter Additional Source Comments The information contained in this document represents components of the legal health record. It is not the complete legal health record.[facility]
== END 2025-06-19 16:25 | disposition home or self-care (01) ==
LOC: HO.MRI 16:24
PROVIDERS: PCP Physician Assistant; Visit Provider Physician Assistant
DX: R51.9 Headache, unspecified (principal)
CPT/HCPCS: 70551

== ENCOUNTER → 2025-06-19 16:30 | Outpatient (BNV) | payer OTHER, SELFPAY | PROVIDERS: PCP Physician Assistant; Visit Provider Radiology Body Imaging | DX: G43.119 Migraine with aura, intractable, without status migrainosus (principal) | CPT/HCPCS: 70551 ==